=== PATIENT | male | born 1995 | race Caucasian/White ===

== ENCOUNTER 2021-03-06 18:25 | Emergency (ER) | payer SELFPAY ==
[2021-03-06 19:52] VITALS: BP 151/87
--- NOTE | 2021-03-06 20:07 | ED Upper Extremity ---
General Chief Complaint: Upper Extremity Stated Complaint: LEFT HAND PINKY FINGER INJ Nursing Triage Note: fell 5 days ago while riding a scooter. Has been having pain, swelling, and bruising to left fifth finger. Went to urgent care and was sent here due to comminuted fracture to possibly have it reduced. Nursing Sepsis Screen: No Definite Risk Source: patient History of Present Illness Date Seen by Provider: Mar 06, 2021 Time Seen by Provider: 18:27 Initial Comments 25-year-old male presenting with pain and swelling to his left pinky finger. He had a fall while riding a scooter 5 days ago and caught his pinky finger when he tried to do a 360 degree jump at the [employer]. He denies hitting his head or losing consciousness. He had no other injuries. He works at [employer] in the kitchen and was having increased pain today as he was continued after using it. He is right-hand dominant. He went to urgent care due to the pain a nd they did x-rays. They recommended he come to the emergency department because they told him he needed to have his finger reduced and that they did not do that. He has intact sensation but decreased movement due to pain and swelling. He has been trying to manage the injury with a splint that he provides himself using a broken ruler. He has more pain today while he was at work so he got to urgent care. Location Injury Occurred: [employer] Onset: other (5 days ago) Severity: moderate Pain/Injury Location: left 5th finger Method of Injury: fell (When he was trying to do a 360 degree trick jump with his scooter) Modifying Factors: Improves With Cold Therapy, Improves With Immobilization; Worse With Jarring, Worse With Movement Allergies and Home Medications Allergies Coded Allergies: naproxen (Verified Allergy, Unknown, 03/06/21) Patient Home Medication List Home Medication List Reviewed: Yes Review of Systems Constitutional: No chills, No fever EENTM: no symptoms reported Respiratory: no symptoms reported Cardiovascular: no symptoms reported Gastrointestinal: no symptoms reported Genitourinary: no symptoms reported Skin: change in color (Some bruising and swelling to the left hand) Psychiatric/Neurological: Denies Numbness, Denies Paresthesia Past Dontjdj-[id number]-[id number] Hx Past Med/Social Hx: Reviewed Nursing Past Med/Soc Hx Patient Social History Alcohol Use: Denies Use Smoking Status: Never a Smoker 2nd Hand Smoke Exposure: No Recent Infectious Disease Expo: No Recent Hopitalizations: No Seasonal Allergies Seasonal Allergies: No Past Medical History Surgeries: No Respiratory: No Cardiac: No Neurological: No Genitourinary: No Gastrointestinal: No Musculoskeletal: No Endocrine: No HEENT: No Cancer: No Psychosocial: No Integumentary: No Blood Disorders: No Physical Exam Vital Signs Vital Signs - First Documented 03/06/21 18:46 Temp 37.2 Pulse 66 Resp 18 B/P (MAP) 151/87 (108) Pulse Ox 96 Capillary Refill : Less Than 3 Seconds Height, Weight, BMI Height: '" Weight: lbs. oz. kg; BMI Method: General Appearance: WD/WN, no apparent distress Cardiovascular: normal peripheral pulses Wrist: Yes normal inspection, Yes non-tender, Yes no evidence of injury, Yes normal ROM Hand: Left, bone tenderness (Proximal pinky finger on the left hand), ecchymosis (Mild bruising and swelling to the left hand and pinky finger) Neurologic/Tendon: normal sensation, normal tendon functions Neurologic/Psychiatric: alert, oriented x 3 Skin: warm/dry Procedures/Interventions Splinting and Joint Reduction : Location: Left hand/pinky finger Pre-Proc Neuro Vasc Exam: normal Post-Proc Neuro Vasc Exam: normal Progress Placed in ulnar gutter splint with flexion of his pinky and ring finger. Patient tolerated splinting well without any immediate complication. He was neurovascular and tendon intact both pre and post splinting. Counseled on management and follow-up of the injury and care of the splint Progress/Results/Core Measures Results/Orders My Orders Orders - VON MENDEZ MD Ed Ortho/Other Supplies Order (03/06/21 19:59) Ortho Glass (03/06/21 19:59) Vital Signs/I&O 03/06/21 03/06/21 18:46 19:52 Temp 37.2 37.2 Pulse 66 66 Resp 18 18 B/P (MAP) 151/87 (108) 151/87 (108) Pulse Ox 96 96 Blood Pressure Mean: 108 Progress Progress Note : Progress Note Reviewed x-rays from urgent care and they showed proximal phalanx fracture of the left finger with comminution and angulation with displacement. On his obl ique view he had about 10-15 degree angulation. He had mild decreased movement due to swelling and pain. I reviewed with the patient that I did not feel there was enough angulation that I would put him through trying to reduce anything here in the ED. Also it may not be very stable or he may actually have to be refractured since this break/injury has been present for several days. He may need to be pinned to stabilize the fracture. Will splint for stabilization and defer to hand/ortho. Placed in the ulnar gutter splint and was neurovascularly intact both pre and post splinting. Counseled to follow-up with hand surgeon through orthopedics or plastics. Given a few phone numbers to try checking with. Counseled on management and follow-up with the splint Departure Impression Primary Impression: Displaced fracture of proximal phalanx of left little finger, initial encounter for closed fracture Disposition: HOME, SELF-CARE Condition: Stable Departure-Patient Inst. Decision time for Depature: 20:01 Referrals: [facility] (PCP/Family) Primary Care Physician Patient Instructions: Splint Care ED, Finger Fracture ED Add. Discharge Instructions: Follow up with Orthopedics or hand specialist for your finger fracture. They may need to do surgery to pin the bone or cast it in place. Wear the splint and keep it clean and dry until seen with specialist. Call Monday to Orthopedics with Dr. Colon and his Nurse practitioner Wai Wade at [phone]. Let them know you need to follow up from the ER and Urgent care for fracture of your left pinky finger in the proximal phalanx. If They are not able to help you then you may need to go to [place] to see a Hand surgeon. [facility] with Dr. Laurel Bill would be another possible provider to see. Her number is [phone] Make sure to take your disk with the xray images on it with you to follow up. Try to elevate your hand above heart level as much as possible to help with pain and swelling. All discharge instructions reviewed with patient and/or family. Voiced understanding. Work/School Note: Work Release Form Date Seen in the Emergency Department: Mar 06, 2021 Return to Work: Mar 07, 2021 Other Restrictions Listed Below: Wear splint left hand. Keep it clean and dry until cleared by doctor. VON MENDEZ MD Mar 06, 2021 20:07
== END 2021-03-06 20:10 | disposition home or self-care (01) ==
LOC: ER FS 18:29
DX: S62.617A Displaced fracture of proximal phalanx of left little finger, initial encounter for closed fracture (principal); V00.141A Fall from scooter (nonmotorized), initial encounter; Y92.830 Public park as the place of occurrence of the external cause
CPT/HCPCS: 29125